=== PATIENT | female | born 1975 | race Caucasian/White ===

== ENCOUNTER 2017-07-04 05:35 | Inpatient (IN) | payer OTHER ==
[~2017-07-04] VITALS: Ht 175.3 cm; Wt 68.9 kg
[2017-07-04] VITALS (7 sets, daily range): BP systolic 140–150; BP diastolic 65–99
[~2017-07-04 05:35] MED LIST: MAXA5TAB10 PO; NAPR250T4 PO
[2017-07-04] MEDS ORDERED: LR 1,000 ML IV ONE (05:45)
[2017-07-04] MEDS ORDERED: MIDAZOLAM INJ 2 MG/2 ML VIAL (J2250) As Ordered ONE ×2 (06:36→08:01)
[2017-07-04] MEDS ORDERED: fentaNYL 100 MCG/2 ML INJECTION (J3010) As Ordered ONE ×2 (06:36→08:01)
[2017-07-04] MEDS ORDERED: FAMO20TA PO (06:37)
[2017-07-04] MEDS ORDERED: TRANEXAMIC ACID 100 MG/ML 10ML VIAL IV ONE (07:00)
[2017-07-04] MEDS ORDERED: TRANEXAMIC ACID 100 MG/ML 10ML VIAL IV SCH (07:00)
[2017-07-04] MEDS ORDERED: BUPIVACAINE LIPOSOME/PF 1.3% 20 ML VIAL (13.3MG/ML)(EXPAREL) As Ordered ONE (07:17)
[2017-07-04] MEDS ORDERED: ceFAZolin 1GM INJ (J0690) As Ordered ONE (07:17)
[2017-07-04] MEDS ORDERED: TRANEXAMIC ACID 100 MG/ML 10ML VIAL As Ordered ONE (07:17)
[2017-07-04 07:26] LABS: CONTROL LINE UCG INT CTR LINE PRESENT
[2017-07-04] MEDS ORDERED: fentaNYL 100 MCG/2 ML INJECTION (J3010) IV PRN (07:45)
[2017-07-04] MEDS ORDERED: MIDAZOLAM INJ 2 MG/2 ML VIAL (J2250) IV PRN (07:45)
[2017-07-04] MEDS ORDERED: ONDANSETRON 4MG/2ML VIAL (J2405) As Ordered ONE ×2 (08:01→10:50)
[2017-07-04] MEDS ORDERED: PROPOFOL 500 MG/50 ML VIAL As Ordered ONE (08:01)
[2017-07-04] MEDS ORDERED: LIDOCAINE 2% INJ 100 MG/5 ML SDV (FOR ANES.) As Ordered ONE (08:01)
[2017-07-04] MEDS: DOCUSATE SODIUM 100 MG CAP PO SCH (09:00)
[2017-07-04] MEDS ORDERED: PROPOFOL 200 MG/20 ML VIAL As Ordered ONE ×2 (09:03→09:35)
[2017-07-04] MEDS ORDERED: PERCOCET 5MG/325MG TAB As Ordered ONE (10:51)
[2017-07-04] MEDS: fentaNYL 100 MCG/2 ML INJECTION (J3010) IV PRN ×4 (10:57→11:20)
[2017-07-04] MEDS ORDERED: ACETAMINOPHEN TAB 650MG DOSE (2X325MG) PO PRN (11:00)
[2017-07-04] MEDS ORDERED: FLEET ENEMA PR PRN (11:00)
[2017-07-04] MEDS ORDERED: PERCOCET 5MG/325MG TAB PO PRN ×2 (11:00→11:15)
[2017-07-04] MEDS ORDERED: ONDANSETRON 4 MG TAB (S0181) PO PRN (11:00)
[2017-07-04] MEDS ORDERED: ONDANSETRON 4MG/2ML VIAL (J2405) IV PRN (11:15)
[2017-07-04] MEDS ORDERED: LR 1,000 ML IV SCH (11:15)
[2017-07-04] MEDS ORDERED: HYDROmorphone HCL 1 MG/ML SYRINGE (J1170) IV PRN (11:15)
--- NOTE | 2017-07-04 12:09 | REP ---
Clinical: Hardware placement. Technique: Portable AP and cross-table lateral views of the right knee. Findings: The patient is status post replacement with normal appearance in positioning to the femoral and tibial components. Overlying swelling and subcutaneous emphysema consistent with recent surgery noted. Impression: Status post right knee replacement. Signed by Adan Cardenas MD 07/04/2017 12:00 P
[2017-07-04] MEDS: KETOROLAC 30 MG/ML VIAL (J1885) IV SCH ×2 (13:14→20:21)
[2017-07-04] MEDS: PERCOCET 5MG/325MG TAB PO PRN ×2 (15:34→23:58)
[2017-07-04] MEDS ORDERED: dexameTHASONE 10 MG/1 ML VIAL PRES.FREE (J1100) ONE (16:59)
[2017-07-04] MEDS ORDERED: ROPIvacaine 0.5% 30 ML INJECTION (J2795) ONE (16:59)
[2017-07-04] MEDS ORDERED: LIDOCAINE 1% MDV 20ML VIAL ONE (16:59)
[2017-07-04] MEDS: CelecoXIB (CeleBREX) 100 MG CAP PO SCH (20:20)
[2017-07-05 02:00] VITALS: BP 145/82
[2017-07-05] MEDS: KETOROLAC 30 MG/ML VIAL (J1885) IV SCH ×3 (05:19→21:05)
[2017-07-05 06:00] VITALS: BP 140/88
[2017-07-05 06:59] LABS: MEAN CORPUSCULAR HEMOGLOBIN 29.3 pg (27.0-33.0); MEAN CORPUSCULAR HGB CONC 35.5 g/dl (32.0-36.5); MEAN CORPUSCULAR VOLUME 82.6 fl (80.0-96.0); PLATELET COUNT, AUTOMATED 181 10^3/uL (150-450); RED CELL DISTRIBUTION WIDTH 12.2 % (11.5-14.5); WHITE BLOOD COUNT 10.2 10^3/uL (4.0-10.0)
--- NOTE | 2017-07-05 06:59 | IPNPDOC ---
Date Seen The patient was seen on 07/05/17. Progress Note SUBJECTIVE: Patient is a 42 y/o female POD1 s/p R TKA. No acute overnight events. No complaints. Pain well controlled OBJECTIVE PHYSICAL EXAMINATION: VITAL SIGNS: Please see below. GENERAL: well nourished female, NAD CARDIOVASCULAR: 2+ DP/PT pulse, BCR all digits RLE. RESPIRATORY: non labored breathing. EXTREMITIES: RLE dressing in place, c/d/i. able to actively flex/extend ankle and toes RLE NEUROLOGICAL: Sensation and motor intact all RLE distributions LABORATORY DATA: Please see below. IMAGING: post op radiographs demonstrate well fixed TKA components DVT prophylaxis ordered?: Lovenox ASSESSMENT: This is a 42 y/o female POD1 s/p R total knee arthroplasty, doing well PLAN: 1. WBAT RLE 2. PT for ambulation 3. Lovenox for DVT prophylaxis, self administration teaching by nurses today 4. d/c labs 5. regular diet 6. Dressing down tomorrow DISPOSITION: likely d/c home tomorrow after PT VS, I&O, 24H, Ino Vital Signs/I&O Vital Signs Date Time Temp Pulse Resp B/P (MAP) Pulse Ox O2 Delivery O2 Flow Rate FiO2 07/05/17 06:00 98.2 63 13 140/88 (105) 99 Room Air 07/04/17 07:35 2 Laboratory Data 24H LABS Laboratory Tests 2 07/04/17 07:08: Urine Test NEGATIVE 07/05/17 06:30: RADHA HUSSEIN MD Jul 05, 2017 06:59
[2017-07-05 07:37] LABS: INR 1.07
--- NOTE | 2017-07-05 08:07 | RO ---
DATE OF PROCEDURE: 07/04/2017 PREOPERATIVE DIAGNOSIS: Right knee osteoarthritis. POSTOPERATIVE DIAGNOSIS: Right knee osteoarthritis. PROCEDURE PERFORMED: Right total knee arthroplasty. SURGEON: Dr. Roni Coppola TIP TESTER: MICHAEL Loaiza ANESTHESIA PROVIDER: Dr. Jacob ANESTHESIA GIVEN: Adductor canal nerve block, single shot spinal with sedation. IMPLANTS USED: DePuy Sigma PFC cruciate-retaining size 2.5 femur with size 2 fixed bearing tibia, 8 mm polyethylene, and 32 mm x 8 mm patellar polyethylene. TOTAL TOURNIQUET TIME: 89 minutes, 250 mmHg right thigh. ESTIMATED BLOOD LOSS: 150 mL. MATERIALS SENT TO LAB: Right knee bone for specimen. COMPLICATIONS: None. ANTIBIOTICS: 2 grams Ancef given within 1 hour of incision. OTHER MEDICATIONS GIVEN: 1 gram tranexamic acid given at the start of the case. INDICATION FOR PROCEDURE: Pati Monroy is a 42-year-old female with long-standing history of right knee pain and progressive valgus deformity. Patient had radiographs that were consistent with right knee osteoarthritis with significant valgus deformity. Patient had failed appropriate nonoperative treatment, to include activity modification, medication therapy, physical therapy, and corticosteroid injections. She had continued activity limiting pain that was interfering with daily activities. I counseled the patient on the surgical and nonsurgical treatment options for knee osteoarthritis and, given that she failed appropriate nonoperative treatment, I recommended right total knee arthroplasty. The patient expressed understanding and provided informed consent for a right total knee arthroplasty. INTRAOPERATIVE FINDINGS: The patient had significant tricompartmental osteoarthritis, most significant in the lateral and patellofemoral compartments. The knee tracked well and was stable after fixation of all components. DESCRIPTION OF PROCEDURE: The patient was positively identified in the preoperative holding area where the surgical site was marked. She was then given adductor canal nerve block by the anesthesia service for postoperative pain control. She was brought to the operating room, where she was positioned supine on a regular table with all bony prominences appropriately padded. Sequential compression device (SCD) was placed on the nonoperative extremity for deep venous thrombosis (DVT) prophylaxis. She was given single-shot spinal anesthesia for the procedure. A Ennis catheter was placed during the case. She was then prepped and draped in the usual sterile fashion. Final time-out was performed. I made a 15 cm longitudinal incision just medial to the midline of the patella extending to just medial to the tibial tubercle. I dissected the skin and subcutaneous tissue and identified the retinacular layer. A medial-based flap was made to identify the retinacular layer for parapatellar arthrotomy. I then performed the parapatellar arthrotomy sharply, dissecting through the synovium and retinaculum. I then dissected sharply and divided the medial meniscus, followed by performing a limited medial release given that she has valgus deformity. I then resected the anterolateral synovium on the femur and resected the prepatellar fat pad nearly in its entirety. I then released the lateral meniscus and lateral soft tissues around to the Gerdy's tubercle. There were some lateral synovial folds that were sharply released. The knee was then flexed with the patella everted, exposing the femur. I then placed the 5 degree valgus right intramedullary femoral guide after using the step cut drill to access the medullary canal at the femur. The block was pinned in place, and the distal femur cut was made in standard fashion. I then placed the femoral sizing block in place and sized the femur to 2.5. The posterior referencing guide was made parallel to the epicondylar access. 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 After the transepicondylar axis was measured, the 4-in-1 cutting block was placed and the anterior, posterior, and chamfer cuts were made on the femur in standard fashion. After this was completed, I then resected the medial and lateral menisci. This was then followed by placement of the extramedullary tibial cutting block. I then referenced to take 4 mm off of the lateral side given this was the affected side. I then performed the proximal tibial cut in standard fashion. After placement of the proximal tibial cut, I then resected all osteophytes from the femur and tibia. The remainder of the menisci were removed. I checked the flexion gap, and I removed posterior osteophytes using a curved osteotome. The flexion gap was noted to be well balanced. The knee was then brought into extension, and there was noticed to be slightly tight in extension. I performed some additional medial and lateral soft tissue releases, which provided balance in extension. No additional bone cuts were required. It was sized to 8 mm polyethylene thickness with good balance in both flexion and extension. I then proceeded to the patellar cut. I then measured the patella to a thickness of 22 mm and resected 8 mm of patella and measured to a size 32, which would replace 8 mm of patellar thickness to avoid over-stuffing of the patella. After performing all cuts, I placed femoral, tibial, and patellar trials and noted that the knee tracked very well using a no-hands technique with excellent patellar tracking. After this was completed, I then prepared the femur, tibia, and patella for implantation. I thoroughly irrigated the bone to clear bloody material from the cancellous bone. The femoral, tibial, and patellar components were then cemented in, in standard fashion. An additional 2 grams of topical tranexamic acid was applied, and 20 mL of Exparel was expanded with 40 mL of saline was injected around the capsule for additional postoperative pain control. After final seating of all implants, the tourniquet was let down. Hemostasis was obtained using Bovie electrocautery. The wound was then thoroughly irrigated again with normal saline and closed in layers. Retinacular layer was closed with some interrupted #0 Vicryl suture and a running barbed suture to close retinacular layer in its entirety. The knee was brought through range of motion after the retinacular closure, confirming water tight seal. The subcutaneous layer was closed with interrupted #2-0 Vicryl sutures in buried fashion, followed by running #3-0 Monocryl. A Prineo Dermabond dressing was applied over the skin. Sterile dressings were applied. This ended the procedure. I was present and scrubbed in for all critical portions of the case. POSTOPERATIVE PLAN: Patient will be weight bearing as tolerated. She will be admitted to the floor. She will undergo physical therapy. The Ennis was removed at the end of the case, and patient will be discharged when criteria met. CRISTIAN
[2017-07-05] MEDS: CelecoXIB (CeleBREX) 100 MG CAP PO SCH ×2 (08:12→20:22)
[2017-07-05] MEDS: DOCUSATE SODIUM 100 MG CAP PO SCH (08:12)
[2017-07-05] MEDS: PERCOCET 5MG/325MG TAB PO PRN ×3 (08:13→21:05)
[2017-07-05] MEDS: ENOXAPARIN 40 MG/0.4 ML SYRINGE (J1650) SC SCH (08:13)
[2017-07-05 10:00] VITALS: BP 148/88
[2017-07-05 14:00] VITALS: BP 164/84
[2017-07-05 18:00] VITALS: BP 153/96
[2017-07-05 22:00] VITALS: BP 154/95
[2017-07-06 02:00] VITALS: BP 146/84
[2017-07-06] MEDS: PERCOCET 5MG/325MG TAB PO PRN ×2 (03:05→09:17)
[2017-07-06 06:00] VITALS: BP 130/88
[2017-07-06 06:55] LABS: INR 1.08
--- NOTE | 2017-07-06 07:03 | DS.PDOC ---
Discharge Summary General Date of Admission Jul 04, 2017 at 05:35 Date of Discharge 07/06/17 Attending Physician: RADHA HUSSEIN MD Discharge Summary PROCEDURES PERFORMED DURING STAY: Right total knee arthroplasty 07/04/2017. ADMITTING DIAGNOSES: 1. Right knee osteoarthritis DISCHARGE DIAGNOSES: 1. Right knee osteoarthritis COMPLICATIONS/CHIEF COMPLAINT: Right Knee Osteoarthritis. HISTORY OF PRESENT ILLNESS: Patient is a 42 year old female with long standing right knee osteoarthritis admitted for right total knee arthroplasty. HOSPITAL COURSE: Patient underwent uneventful above procedure on the day of admission. She was admitted to the hospital floor for post op pain control and, physical therapy. ON the day of discharge, she was ambulating with a walker, pain was controlled, she was tolerating PO intake, voiding spontaneously, and had demonstrated proficiency in self administration of lovenox. DISCHARGE MEDICATIONS: Please see below. ALLERGIES: Please see below. PHYSICAL EXAMINATION ON DISCHARGE: VITAL SIGNS: Please see below. GENERAL: No acute distress CARDIOVASCULAR EXAMINATION: 2+ DP/PT pulses RLE RESPIRATORY EXAMINATION: Non labored breathing EXTREMITIES: R knee wound well healed, clean, dry, intact. Knee ROM 0-50 degrees LABORATORY DATA: Please see below. IMAGING: Post op radiographs demonstrate well fixed total knee arthroplasty components PROGNOSIS: Good ACTIVITY: As tolerated. DIET: Regular. DISCHARGE PLAN: Discharge to home DISPOSITION: 01 Home, Self-Care. DISCHARGE CONDITION: Stable. Vital Signs/I&Os Vital Signs Date Time Temp Pulse Resp B/P (MAP) Pulse Ox O2 Delivery O2 Flow Rate FiO2 07/06/17 06:00 98.4 109 16 130/88 (102) 98 Room Air 07/04/17 07:35 2 Laboratory Data Labs 24H Laboratory Tests 2 07/06/17 06:23: Prothrombin Time 14.2, Prothromb Time International Ratio 1.08 Discharge Medications Scheduled PRN Famotidine (Pepcid) 20 Mg Tab, 20 MG PO PRN PRN for INDIGESTION, (Reported) Rizatriptan Benzoate (Maxalt) 5 Mg Tab, 5 MG PO PRN PRN for MIGRAINE, (Reported) Allergies Coded Allergies: No Known Allergies (Unverified , 07/04/17) RADHA HUSSEIN MD Jul 06, 2017 07:03
[2017-07-06] MEDS: ENOXAPARIN 40 MG/0.4 ML SYRINGE (J1650) SC SCH (09:17)
[2017-07-06] MEDS: DOCUSATE SODIUM 100 MG CAP PO SCH (09:17)
[2017-07-06] MEDS: CelecoXIB (CeleBREX) 100 MG CAP PO SCH (09:17)
[2017-07-06] MEDS ORDERED: PERCOCET 5MG/325MG TAB PO ONE (12:45)
== END 2017-07-06 13:00 | disposition home or self-care (01) | DRG 470 ==
LOC: M OR 05:35 → M MS5PR 11:55
PROVIDERS: ADMIT Orthopaedic Surgery; ATTEND Orthopaedic Surgery
PROC: 0SRC0JZ Replacement of Right Knee Joint with Synthetic Substitute, Open Approach (ICD-10-PCS; principal; 2017-07-04 07:30)
DX: M17.11 Unilateral primary osteoarthritis, right knee (principal)

== ENCOUNTER 2017-07-14 09:37 | Emergency (ER) | payer OTHER ==
[~2017-07-14] VITALS: Ht 175.3 cm; Wt 65.9 kg
[~2017-07-14 09:37] MED LIST changes: +FAMO20TA PO
[2017-07-14] MEDS ORDERED: ZOFR4TAB3 PO ×2 (09:57→13:31)
[2017-07-14] MEDS ORDERED: PERCOCET PO (09:57)
[2017-07-14] MEDS ORDERED: TYLE500T78 PO (10:10)
[2017-07-14] MEDS ORDERED: METOCLOPRAMIDE INJ 10MG/2ML VIAL (J2765) IV ONE (10:15)
[2017-07-14] MEDS ORDERED: KETOROLAC 30 MG/ML VIAL (J1885) IV ONE (10:15)
[2017-07-14] MEDS ORDERED: NS 1,000 ML IV ONE (10:15)
[2017-07-14 10:41] LABS: BASO # 0.1 10^3/uL (0.0-0.2); BASO % 0.8 % (0.0-1.0); EOS # 0.4 10^3/uL (0.0-0.50); EOS % 6.3 % (0.0-3.0); LYMPH # 2.2 10^3/uL (1.5-4.5); LYMPH % 34.9 % (24.0-44.0); MEAN CORPUSCULAR HEMOGLOBIN 28.6 pg (27.0-33.0); MEAN CORPUSCULAR HGB CONC 34.3 g/dl (32.0-36.5); MEAN CORPUSCULAR VOLUME 83.5 fl (80.0-96.0); MONO # 0.4 10^3/uL (0.0-0.8); MONO % 6.1 % (0.0-5.0); NEUTROPHILS # 3.2 10^3/uL (1.8-7.7); NEUTROPHILS % 50.9 % (36.0-66.0); PLATELET COUNT, AUTOMATED 393 10^3/uL (150-450); RED CELL DISTRIBUTION WIDTH 12.9 % (11.5-14.5); WHITE BLOOD COUNT 6.2 10^3/uL (4.0-10.0)
[2017-07-14] MEDS ORDERED: ONDANSETRON 4MG/2ML VIAL (J2405) IV ONE (10:45)
[2017-07-14 11:14] LABS: ANION GAP 10 MEQ/L (8-16); BLOOD UREA NITROGEN 14 MG/DL (7-18); CALCIUM LEVEL 10.1 MG/DL (8.5-10.1); CARBON DIOXIDE LEVEL 26 MEQ/L (21-32); CHLORIDE LEVEL 106 MEQ/L (98-107); CREATININE FOR GFR 0.78 MG/DL (0.55-1.02); GLOMERULAR FILTRATION RATE > 60.0 (>58); GLUCOSE, FASTING 95 MG/DL (70-105); POTASSIUM SERUM 3.6 MEQ/L (3.5-5.1); SODIUM LEVEL 142 MEQ/L (136-145)
[2017-07-14 11:15] LABS: ERYTHROCYTE SEDIMENTATION RATE 62 mm/hr (0-20)
--- NOTE | 2017-07-14 11:16 | REP ---
Clinical: Acute headache and extremity numbness . Comparison: None . Findings: The ventricles, sulci, and cisterns are normal in position and appearance. Mijares-white differentiation is maintained. No acute intracranial hemorrhage, mass/mass effect, pathology or trauma/injury. No evidence for acute infarction. No extra-axial fluid collection. Calvarium is intact. Paranasal sinuses and mastoid air cells are clear. Impression: Normal noncontrast head CT. No evidence for acute intracranial pathology or trauma/injury. Signed by Adan Cardenas MD 07/14/2017 11:07 A
[2017-07-14] MEDS ORDERED: PERCOCET 5MG/325MG TAB PO ONE (12:15)
[2017-07-14] MEDS ORDERED: PERC5TAB12 PO ×2 (13:31→13:33)
[2017-07-14 14:10] VITALS: BP 158/98
== END 2017-07-14 14:13 | disposition home or self-care (01) ==
LOC: EDBD 09:37 → M ED 09:37
DX: G43.109 Migraine with aura, not intractable, without status migrainosus (principal); R03.0 Elevated blood-pressure reading, without diagnosis of hypertension; Z79.899 Other long term (current) drug therapy; Z88.8 Allergy status to other drugs, medicaments and biological substances
CPT/HCPCS: 70450; 80048; 85025; 85652; 96374; 96375; 99284; J1885; J2405

== ENCOUNTER → 2017-09-26 | Outpatient (REF) ==
[2017-09-26 14:53] LABS: C REACTIVE PROTEIN QUANTITATIV < 0.30 MG/DL (0.00-0.30)
== END ==
LOC: M LAB REF 13:43
DX: Z00.00 Encounter for general adult medical examination without abnormal findings (principal)

== ENCOUNTER → 2019-06-05 | Outpatient (CLI) | payer OTHER ==
[~2019-06-05] MED LIST changes: +PERC5TAB12 PO; +PERCOCET PO; +TYLE500T78 PO; +ZOFR4TAB14 PO
--- NOTE | 2019-06-05 12:47 | REPMRS ---
Patient History The patient states she has not had a clinical breast exam in over a year. Family history of melanoma in mother, melanoma cancer in brother, throat cancer in maternal uncle, breast cancer in maternal grandmother, pancreatic cancer in father. Digital Mammo Screening Bilat: June 05, 2019 - Exam #: [id number] Bilateral CC and MLO view(s) were taken. Technologist: Maeve Pantoja, Technologist Prior study comparison: November 19, 2015, bilateral digital woman screen mammo, performed at [facility]. September 02, 2014, bilateral digital woman screen mammo, performed at [facility]. FINDINGS: The breast tissue is heterogeneously dense. This may lower the sensitivity of mammography. There is a moderate amount of heterogeneously dense fibroglandular tissue which is fairly symmetric. There is no interval development of dominant mass, architectural distortion, or grouped microcalcification typical of malignancy. There has been no change in the appearance of the mammogram from the prior studies. Assessment: BI-RADS/ACR category 1 mammogram. Negative Mammogram. Recommendation Routine screening mammogram of both breasts in 1 year (for women over age 40). This patient's Lifetime Breast Cancer RIsk is estimated at 14.8 %. This mammogram was interpreted with the aid of an FDA-approved computer-aided dectection system. Electronically Signed By: Dano Washington MD 06/05/19 [id number]
== END ==
LOC: M RAD 08:35
PROVIDERS: ATTEND Physician Assistant
DX: Z12.31 Encounter for screening mammogram for malignant neoplasm of breast (principal); Z80.3 Family history of malignant neoplasm of breast; Z84.0 Family history of diseases of the skin and subcutaneous tissue

== ENCOUNTER 2020-12-03 04:34 | Emergency (ER) | payer OTHER ==
[~2020-12-03] VITALS: Ht 175.3 cm; Wt 75.0 kg
[~2020-12-03 04:34] MED LIST changes: +NAPR-849 PO; -NAPR250T4 PO
[2020-12-03] MEDS ORDERED: OMEP40CA97 PO (04:41)
[2020-12-03] MEDS ORDERED: LISI10TA15 PO (04:41)
[2020-12-03] MEDS ORDERED: IBUPROFEN 600MG TAB PO ONE (04:55)
[2020-12-03 05:13] LABS: BASO % 0.2 % (0.0-1.0); EOS # 0.1 10^3/uL (0.0-0.5); EOS % 2.3 % (0.0-3.0); HEMOGLOBIN 12.9 g/dl (12.0-15.5); LYMPH # 2.1 10^3/uL (1.5-5.0); LYMPH % 45.1 % (24.0-44.0); MEAN CORPUSCULAR HEMOGLOBIN 28.3 pg (27.0-33.0); MEAN CORPUSCULAR HGB CONC 33.1 g/dl (32.0-36.5); MEAN CORPUSCULAR VOLUME 85.5 fl (80.0-96.0); MONO # 0.3 10^3/uL (0.0-0.8); MONO % 5.5 % (2.0-8.0); NEUTROPHILS # 2.2 10^3/uL (1.5-8.5); NEUTROPHILS % 46.5 % (36.0-66.0); PLATELET COUNT, AUTOMATED 208 10^3/uL (150-450); RED BLOOD COUNT 4.56 10^6/uL (4.00-5.40); WHITE BLOOD COUNT 4.7 10^3/uL (4.0-10.0)
--- NOTE | 2020-12-03 05:34 | REPVR ---
PROCEDURE INFORMATION: Exam: XR Chest Exam date and time: 12/03/20 (5:01am) Age: 45 years old Clinical indication: Chest pain TECHNIQUE: Imaging protocol: XR of the chest Views: 2 views COMPARISON: No relevant prior studies available FINDINGS: Lungs: Unremarkable. No consolidation. Pleural spaces: Unremarkable. No pleural effusions. No pneumothorax. Heart/Mediastinum: Unremarkable. No cardiomegaly. Bones/joints: Unremarkable. IMPRESSION: No acute findings. Clear lung cobb. Electronically signed by: Naila Latham On 12/03/2020 05:35:00 AM
--- NOTE | 2020-12-03 05:36 | REPVR ---
PROCEDURE INFORMATION: Exam: US Duplex Left Upper Extremity Veins, Limited Exam date and time: 12/03/20 (5:14am) Age: 45 years old Clinical indication: Left arm pain. Possible DVT. TECHNIQUE: Imaging protocol: Real-time Duplex ultrasound of the Left Upper Extremity with 2-D jackson scale, color Doppler flow and spectral waveform analysis with image documentation. Limited exam focused on the left upper extremity veins. COMPARISON: No relevant prior studies available FINDINGS: Left deep veins: Unremarkable. Axillary and brachial veins are patent throughout without thrombus. Normal Doppler waveforms. Normal compressibility and/or augmentation response. Visualized internal jugular and subclavian veins are patent. Left superficial veins: Unremarkable. Visualized cephalic and basilic veins are patent without thrombus. Soft tissues: Unremarkable. IMPRESSION: No evidence of venous thrombosis (left upper extremity). Electronically signed by: Naila Latham On 12/03/2020 05:36:42 AM
[2020-12-03 05:41] LABS: ALT/SGPT 28 U/L (12-78); BILIRUBIN,DIRECT 0.1 MG/DL (0.0-0.2); BILIRUBIN,TOTAL 0.7 MG/DL (0.2-1.0); BLOOD UREA NITROGEN 17 MG/DL (7-18); CALCIUM LEVEL 9.5 MG/DL (8.5-10.1); CARBON DIOXIDE LEVEL 30 MEQ/L (21-32); CHLORIDE LEVEL 105 MEQ/L (98-107); CPK CREATINE PHOSPHOKINASE 179 U/L (26-192); CREATININE FOR GFR 0.75 MG/DL (0.55-1.30); FREE T4 0.93 NG/DL (0.76-1.46); GLOMERULAR FILTRATION RATE > 60.0 (>58); GLUCOSE, FASTING 132 MG/DL (70-100); LIPASE 166 U/L (73-393); MB/CK RELATIVE INDEX 0.56 (< OR =4); POTASSIUM SERUM 3.7 MEQ/L (3.5-5.1); SODIUM LEVEL 141 MEQ/L (136-145); TOTAL PROTEIN 7.3 GM/DL (6.4-8.2); TROPONIN I < 0.02 NG/ML (< 0.10)
--- NOTE | 2020-12-03 10:19 | ECGEPIP ---
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
[2020-12-03 11:40] LABS: CK-MB VALUE MASS 1.3 NG/ML (<3.6); CPK CREATINE PHOSPHOKINASE 148 U/L (26-192); MB/CK RELATIVE INDEX 0.88 (< OR =4); TROPONIN I < 0.02 NG/ML (< 0.10)
[2020-12-03 11:45] VITALS: BP 132/77
--- NOTE | 2020-12-04 19:36 | ECGEPIP ---
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
== END 2020-12-03 12:02 | disposition home or self-care (01) ==
LOC: M ED 04:34
DX: M79.602 Pain in left arm (principal); R07.9 Chest pain, unspecified; I10 Essential (primary) hypertension; Z79.899 Other long term (current) drug therapy

== ENCOUNTER → 2022-06-10 | Outpatient (CLI) | payer OTHER ==
[~2022-06-10] MED LIST changes: +LISI10TA24 PO; +OMEP40CA4 PO
== END ==
LOC: M WHC 09:50
PROVIDERS: ATTEND Family Medicine
DX: Z12.31 Encounter for screening mammogram for malignant neoplasm of breast (principal); R92.8 Other abnormal and inconclusive findings on diagnostic imaging of breast

== ENCOUNTER → 2022-07-05 | Outpatient (CLI) | payer OTHER | LOC: M WHC 08:47 | PROVIDERS: ATTEND Family Medicine | DX: Z12.39 Encounter for other screening for malignant neoplasm of breast (principal); N60.12 Diffuse cystic mastopathy of left breast; N63.13 Unspecified lump in the right breast, lower outer quadrant; N60.01 Solitary cyst of right breast ==

== ENCOUNTER → 2022-07-19 | Outpatient (CLI) | payer OTHER ==
[~2022-07-19] MED LIST changes: +**SFHN** LIDOCAINE 1% MDV 20ML VIAL ONE; +**SFHN** SODIUM BICARBONATE 8.4% 10MEQ 10ML VIAL ONE; +CLAR10CA3 PO
[2022-07-19 15:50] VITALS: BP 114/72
== END ==
LOC: M WHCPRO 13:54
PROVIDERS: ATTEND Family Medicine
DX: N63.21 Unspecified lump in the left breast, upper outer quadrant (principal); N63.13 Unspecified lump in the right breast, lower outer quadrant

== ENCOUNTER → 2023-10-19 | Outpatient (CLI) | payer OTHER ==
[~2023-10-19] MED LIST changes: -**SFHN** LIDOCAINE 1% MDV 20ML VIAL ONE; -**SFHN** SODIUM BICARBONATE 8.4% 10MEQ 10ML VIAL ONE; +HYDR12CA PO; +LISI20TA33 PO; +PRIL20TA2 PO; +VITA100093 PO
== END ==
LOC: M WHC 16:35
PROVIDERS: ATTEND Family Medicine
DX: Z12.31 Encounter for screening mammogram for malignant neoplasm of breast (principal)

== ENCOUNTER → 2023-11-09 | Outpatient (CLI) | payer OTHER | LOC: M WHC 08:33 | PROVIDERS: ATTEND Family Medicine | DX: Z12.31 Encounter for screening mammogram for malignant neoplasm of breast (principal) | CPT/HCPCS: 76642; 77065; G0279 ==

== ENCOUNTER → 2024-05-14 | Outpatient (CLI) | payer OTHER | LOC: M WHC 11:07 | PROVIDERS: ATTEND Family Medicine | DX: Z12.31 Encounter for screening mammogram for malignant neoplasm of breast (principal) | CPT/HCPCS: 77065; G0279 ==

== ENCOUNTER 2024-11-15 22:35 | Emergency (ER) | payer OTHER ==
[~2024-11-15] VITALS: Ht 175.3 cm; Wt 78.3 kg
[2024-11-15 22:40] VITALS: TEMP 96.4
[2024-11-16] MEDS: DERMABOND TOPICAL SKIN ADHESIVE TOP ONE (02:20)
[2024-11-16 02:51] VITALS: BP 119/76; O2SAT 97
[2024-11-16] MEDS: BOOSTRIX VACCINE (TETANUS/DIPHTH/ACEL. PERTUSSIS) 0.5ML SYR IM ONE (02:59)
== END 2024-11-16 03:00 | disposition home or self-care (01) ==
LOC: M ED 22:35
DX: S01.81XA Laceration without foreign body of other part of head, initial encounter (principal); W01.198A Fall on same level from slipping, tripping and stumbling with subsequent striking against other object, initial encounter; M50.322 Other cervical disc degeneration at C5-C6 level; M50.323 Other cervical disc degeneration at C6-C7 level; M25.78 Osteophyte, vertebrae; I10 Essential (primary) hypertension; K21.9 Gastro-esophageal reflux disease without esophagitis; Z79.811 Long term (current) use of aromatase inhibitors; Z79.899 Other long term (current) drug therapy; Y92.009 Unspecified place in unspecified non-institutional (private) residence as the place of occurrence of the external cause; Y93.89 Activity, other specified; Y99.9 Unspecified external cause status; Z23 Encounter for immunization

== ENCOUNTER → 2024-12-17 | Outpatient (CLI) | payer OTHER ==
[~2024-12-17] MED LIST changes: +LIDOCAINE 1% MDV 20ML VIAL As Ordered ONE
[2024-12-17 08:30] VITALS: TEMP 97.9
[2024-12-17 09:10] VITALS: BP 134/87; O2SAT 98
== END ==
LOC: M IRPRO 08:15
PROVIDERS: ATTEND Student in an Organized Health Care Education/Training Program
DX: E04.1 Nontoxic single thyroid nodule (principal)

== ENCOUNTER → 2025-03-28 | Outpatient (CLI) | payer OTHER ==
[~2025-03-28] MED LIST changes: +HYDR12.510 PO; -HYDR12CA PO; +ISOVUE-370 76% 100 ML VIAL As Ordered ONE; -LIDOCAINE 1% MDV 20ML VIAL As Ordered ONE
== END ==
LOC: M RAD 06:23
PROVIDERS: ATTEND Internal Medicine Hematology & Oncology
DX: C73 Malignant neoplasm of thyroid gland (principal); K76.0 Fatty (change of) liver, not elsewhere classified; Z90.49 Acquired absence of other specified parts of digestive tract; N28.1 Cyst of kidney, acquired; E04.2 Nontoxic multinodular goiter
CPT/HCPCS: 70491; 71260; 74177; Q9967

== ENCOUNTER → 2025-04-01 | Outpatient (REF) | payer OTHER ==
[~2025-04-01] MED LIST changes: -ISOVUE-370 76% 100 ML VIAL As Ordered ONE
[2025-04-01 12:59] LABS: APPEARANCE, URINE CLEAR (CLEAR); BACTERIA, URINE AUTO NEGATIVE (NEGATIVE); BILIRUBIN, URINE AUTO NEGATIVE (NEGATIVE); BLOOD, URINE BLOOD NEGATIVE (NEGATIVE); GLUCOSE, URINE (UA) AUTO NEGATIVE (NEGATIVE); KETONE, URINE AUTO NEGATIVE (NEGATIVE); LEUKOCYTE ESTERASE, URINE AUTO NEGATIVE (NEGATIVE); NITRITE, URINE AUTO NEGATIVE (NEGATIVE); PROTEIN, URINE AUTO NEGATIVE (NEGATIVE); RBC, URINE AUTO 1 /HPF (0-3); SPECIFIC GRAVITY URINE AUTO 1.009 (1.002-1.035); SQUAMOUS EPITHELIAL CELL UR AU 0 /HPF (0-6); UROBILINOGEN, URINE AUTO 0.2 mg/dL (0.0-2.0); WBC, URINE AUTO 0 /HPF (0-3)
== END ==
LOC: M SMT 12:42
PROVIDERS: ATTEND Nurse Practitioner Family
DX: N39.0 Urinary tract infection, site not specified (principal)

== ENCOUNTER → 2025-04-04 | Outpatient (CLI) | payer OTHER ==
[~2025-04-04] MED LIST changes: +PROHANCE 279.3MG/ML 15ML VIAL As Ordered ONE; +VIT D; +[UNRECOGNIZED DRUG - OTHER]
== END ==
LOC: M RAD 16:11
PROVIDERS: ATTEND Internal Medicine Hematology & Oncology
DX: R90.82 White matter disease, unspecified (principal); C73 Malignant neoplasm of thyroid gland

== ENCOUNTER → 2025-05-05 | Outpatient (CLI) | payer OTHER ==
[~2025-05-05] MED LIST changes: -PROHANCE 279.3MG/ML 15ML VIAL As Ordered ONE
== END ==
LOC: M RAD 09:31
PROVIDERS: ATTEND Internal Medicine Hematology & Oncology
DX: C73 Malignant neoplasm of thyroid gland (principal); Z96.651 Presence of right artificial knee joint
CPT/HCPCS: 78306; A9503

== ENCOUNTER → 2025-06-23 | Outpatient (CLI) | payer OTHER ==
[~2025-06-23] MED LIST changes: +LEVO112T2
== END ==
LOC: M RAD 15:50
PROVIDERS: ATTEND Nurse Practitioner Family
DX: N39.0 Urinary tract infection, site not specified (principal)

== ENCOUNTER → 2025-07-01 | Outpatient (CLI) | payer OTHER | LOC: M WHC 13:28 | PROVIDERS: ATTEND Student in an Organized Health Care Education/Training Program | DX: R92.333 Mammographic heterogeneous density, bilateral breasts (principal); R92.30 Dense breasts, unspecified | CPT/HCPCS: 77066; G0279 ==

== ENCOUNTER → 2025-07-07 | Outpatient (CLI) | payer OTHER ==
[2025-07-09 15:18] LABS: THRYOGLOBULIN ANTIBODIES (ATA) < 1 IU/mL (< or = 1); THYROGLOBULIN QUANTITATIVE 1.9 ng/mL (2.8-40.9)
== END ==
LOC: M ONCR 12:51
PROVIDERS: ATTEND General Practice
DX: C73 Malignant neoplasm of thyroid gland (principal); Z90.89 Acquired absence of other organs; Z98.890 Other specified postprocedural states; Z90.49 Acquired absence of other specified parts of digestive tract; Z79.899 Other long term (current) drug therapy
CPT/HCPCS: 84432; 86800; G0463

== ENCOUNTER → 2025-08-01 | Outpatient (REF) | payer OTHER ==
[2025-08-01 12:51] LABS: CALCIUM LEVEL 9.2 MG/DL (8.5-10.1)
[2025-08-01 12:55] LABS: FREE T4 1.58 NG/DL (0.89-1.76); PTH INTACT 31.1 PG/ML (18.5-88.0)
[2025-08-01 12:58] LABS: THYROGLOBULIN ANTIBODY 21.0 U/ML (<60.0); THYROID PEROXIDASE ANTIBODY < 28.0 U/ML (<60.0); TOTAL T3 112.9 NG/DL (60.0-181.0)
== END ==
LOC: M LAB REF 11:41
DX: C73 Malignant neoplasm of thyroid gland (principal)